=== PATIENT | female | born 1995 | race Caucasian/White ===

== ENCOUNTER 2019-07-23 17:17 | Emergency (ER) | payer BC ==
[~2019-07-23] VITALS: Ht 154.9 cm; Wt 59.0 kg
[2019-07-23] MEDS ORDERED: NORCO 5-325 TA1 EAC1 PO (18:25)
[2019-07-23 18:50] VITALS: BP 137/68
== END 2019-07-23 18:52 | disposition home or self-care (01) ==
LOC: M.ERS 17:17
DX: S51.812A Laceration without foreign body of left forearm, initial encounter (principal); S61.212A Laceration without foreign body of right middle finger without damage to nail, initial encounter; W26.0XXA Contact with knife, initial encounter; Y93.89 Activity, other specified; Y92.89 Other specified places as the place of occurrence of the external cause; Y99.8 Other external cause status